=== PATIENT | female | born 1990 | race American Indian/Alaskan Native ===

== ENCOUNTER 2017-09-21 12:13 | Emergency (ER) | payer SELFPAY ==
--- NOTE | 2017-09-21 21:14 | Emergency Department Report ---
HPI - General Chief Complaint: Upper Respiratory Infection Time Seen by Provider: 09/21/17 20:29 - HPI HPI: Patient reports that she is having head congestion and greenish nasal discharge over the last week but is been getting worse over the last 2 days. She reports that she is having headache to front of her had and sinus pain at 10 out of 10. Denies any fever or chills. Denies any nausea or vomiting. Reports occasional coughing but no shortness of breath or chest pain. Denies any dizziness or visual difficulties. Denies any sore throat. Denies any abdominal or back pain. She says she's been taking [id number] cough and cold medication and is not helping. Patient says she has a history of lupus and her immune system is low so she wants to make sure that she is doesn't get an infection. ED Past Medical Hx - Past Medical History Previous Medical History?: Yes Additional medical history: lupus - Surgical History Past Surgical History?: No - Family History Family history: hypertension - Social History Smoking Status: Never Smoker Substance Use Type: None - Medications Home Medications: Home Medications Medication Instructions Recorded Confirmed Last Taken Type Amoxicillin/K Clav Tab [Augmentin 1 tab PO Q12HR 10 Days #20 tab 09/21/17 Unknown Rx 875 mg] Cetirizine HCl [ZyrTEC] 10 mg PO QAM 14 Days #14 capsule 09/21/17 Unknown Rx Fluticasone [Flonase] 1 spray NS QDAY 14 Days #1 bottle 09/21/17 Unknown Rx ED Review of Systems ROS: Stated complaint: LUPUS/HEAD PAIN Other details as noted in HPI Comment: All other systems reviewed and negative Constitutional: no symptoms reported Eyes: denies: eye pain, eye discharge, vision change ENT: congestion, other (sinus pain and pressure). denies: ear pain, throat pain Respiratory: cough. denies: shortness of breath, SOB with exertion, SOB at rest , stridor, wheezing Cardiovascular: denies: chest pain, palpitations, dyspnea on exertion, orthopnea , edema, syncope, paroxysmal nocturnal dyspnea Gastrointestinal: denies: abdominal pain, nausea, vomiting Genitourinary: denies: urgency, dysuria, frequency, hematuria, discharge Musculoskeletal: denies: back pain, joint swelling, arthralgia, myalgia Skin: denies: rash Neurological: headache. denies: weakness, numbness, paresthesias, confusion, abnormal gait, vertigo Physical Exam - Physical Exam Vital Signs: Vital Signs 09/21/17 13:01 Temperature 98.8 F Pulse Rate 98 H Respiratory 16 Rate Blood Pressure 103/69 O2 Sat by Pulse 100 Oximetry General: This is a 26-year-old female well-nourished well-developed in no acute distress Physical Exam: Head: Normocephalic atraumatic Ears:BIateral TM congested without erythema and loss of bony landmarks. Pravin EAC with normal exam. No mastoid bone tenderness. Mouth: Moist, no pharyngeal erythema or exudate . No tonsillar erythema or exudate. UVULA midline and oral airways patent. No peritonsillar abscess Neck: Nontender to palpate, supple, normal range of motion. No adenopathy. No c- spine tenderness. Nose: Bilateral nasal mucosa congested with erythema and clear drainage. Maxillary and frontal sinuses tender to palpate. Eyes: Sclerae and conjunctiva without injection. Bilateral pupils equal and reactive to light. Bilateral lids are normal. Normal accommodation.BEOMI Lungs: Clear to auscultate bilaterally, no rhonchi wheezes or rales. Normal work of breathing and no chest wall tenderness CV: S1, S2. Regular rate and rhythm negative murmur. Capillary refill is less than 3 seconds Extremity: No clubbing, cyanosis or edema. +2 pulses all extremities. No neurovascular compromise. No joint effusion, crepitus, erythema or bony tenderness. +5 strength in all extremities Neurological: Neurologically, the patient was awake, alert, and oriented to person, place and time. There were no obvious focal neurologic abnormalities. Skin: Clean dry and intact, no rashes or lesions Psych: Normal mood and behavior , ED Course Vital Signs 09/21/17 13:01 Temperature 98.8 F Pulse Rate 98 H Respiratory 16 Rate Blood Pressure 103/69 O2 Sat by Pulse 100 Oximetry - Reevaluation(s) Reevaluation #1: 09/21/17 23:18 Patient given tylenol 975 mg po in ed for pain Critical care attestation.: If time is entered above; I have spent that time in minutes in the direct care of this critically ill patient, excluding procedure time. ED Disposition Clinical Impression: Nasal congestion with rhinorrhea Headache Qualifiers: Headache type: unspecified Headache chronicity pattern: episodic headache Intractability: not intractable Qualified Code(s): R51 - Headache Sinusitis, acute Qualifiers: Sinusitis location: unspecified location Recurrence: not specified as recurrent Qualified Code(s): J01.90 - Acute sinusitis, unspecified Disposition: DC-01 TO HOME OR SELFCARE Is pt being admited?: No Does the pt Need Aspirin: No Condition: Stable Instructions: Sinusitis (ED), Acute Headache (ED) Additional Instructions: Please increase her fluid intake Flush nostrils with saline nasal spray take antibiotic as prescribed F/U with primary care physician as instructed Prescriptions: Amoxicillin/K Clav Tab [Augmentin 875 mg] 1 tab PO Q12HR 10 Days #20 tab Cetirizine HCl [ZyrTEC] 10 mg PO QAM 14 Days #14 capsule Fluticasone [Flonase] 1 spray NS QDAY 14 Days #1 bottle Referrals: HIMANSHU KENNEDY MD [Primary Care Provider] - 2-3 Days Forms: Work/School Release Form(ED)
[2017-09-21] MEDS ORDERED: TYLENOL PO ONE (23:13)
[2017-09-21 23:36] VITALS: BP 111/67
== END 2017-09-21 23:35 | disposition home or self-care (01) ==
LOC: ED 12:13
DX: J01.90 Acute sinusitis, unspecified (principal); R51 Headache; M32.9 Systemic lupus erythematosus, unspecified; I10 Essential (primary) hypertension
CPT/HCPCS: 99282